=== PATIENT | male | born 1975 ===

== ENCOUNTER 2017-12-27 08:39 | Emergency (ER) | payer OTHER ==
[2017-12-27 08:54] VITALS: BP 158/109
[2017-12-27] MEDS ORDERED: Tetracaine 0.5% OPTH.SOL 4 ML* 1 DROP BTL ONE (09:00)
[2017-12-27] MEDS ORDERED: BSS OPTH.SOL* BTL ONE (09:00)
[2017-12-27] MEDS ORDERED: Fluorescein Sodium TOPICAL* 1 MG TEST ONE (09:01)
[2017-12-27] MEDS ORDERED: Tetracaine 0.5% OPTH.SOL 4 ML* 1 DROP BTL LEFT EYE ONE (09:08)
[2017-12-27] MEDS ORDERED: BSS OPTH.SOL* BTL OPHTHALMIC ONE (09:09)
[2017-12-27] MEDS ORDERED: Fluorescein Sod TOPICAL 0.6* 0.6 MG TEST OPHTHALMIC ONE (09:34)
--- NOTE | 2017-12-27 09:37 | UC ---
Eye Complaint HPI - HPI Summary HPI Summary: POSSIBLE FB IN LEFT EYE SINCE GRINDING METAL AT WORK YESTERDAY AROUND 2:30PM. WAS WEARING SAFETY GOGGLES AND FACE SHIELD AT THE TIME. PT IMMEDIATELY FLUSHED EYE AT [facility]. FELT BETTER BUT THIS MORNING EYE WAS CRUSTED WITH DRAINAGE AND PT HAD SOME MILD BLURRY VISION LOWER VISUAL FIELD. HAS FB SENSATION BUT NO PAIN, NAUSEA OR STARR. - History of Current Complaint Chief Complaint: UCEye Stated Complaint: EYE COMPLAINT Time Seen by Provider: 12/27/17 09:08 Hx Obtained From: Patient Onset/Duration: Sudden Onset, Lasting Hours, Still Present Timing: Constant Severity Initially: Mild Severity Currently: Mild Pain Intensity: 1 Pain Scale Used: 0-10 Numeric Character: Foreign Body Sensation Aggravating Factor(s): Blinking Alleviating Factor(s): Nothing Associated Signs And Symptoms: Positive: Drainage (Clear). Negative: Photophobia - Allergies/Home Medications Allergies/Adverse Reactions: Allergies Allergy/AdvReac Type Severity Reaction Status Date / Time No Known Allergies Allergy Verified 12/27/17 08:47 PMH/Surg Hx/FS Hx/Imm Hx Previously Healthy: Yes - Surgical History Surgical History: Yes Surgery Procedure, Year, and Place: RIGHT KNEE/SHOULDER - Family History Known Family History: Positive: Hypertension - Social History Alcohol Use: Daily Substance Use Type: None Smoking Status (MU): Never Smoked Tobacco Review of Systems Constitutional: Negative Eyes: Blurred Vision, Other - FB SENSATION Respiratory: Negative Cardiovascular: Negative Gastrointestinal: Negative All Other Systems Reviewed And Are Negative: Yes Physical Exam Triage Information Reviewed: Yes Appearance: Well-Appearing, No Pain Distress, Well-Nourished Vital Signs: Initial Vital Signs Temp 97.7 F 12/27/17 08:48 Pulse 83 12/27/17 08:48 Resp 16 12/27/17 08:48 BP 158/109 12/27/17 08:48 Pulse Ox 98 12/27/17 08:48 Vital Signs Reviewed: Yes Eyes: Positive: Conjunctiva Clear, Other: - PERRL, EOMI. FLUORESCEIN UPTAKE LEFT CORNEA AT 7 O'CLOCK AT BORDER OF IRIS AND AT 4 O'CLOCK AT BORDER OF PUPIL. NO FB IDENTIFIED. Negative: Discharge ENT: Positive: Hearing grossly normal Neck: Positive: Supple Respiratory: Positive: No respiratory distress, No accessory muscle use Cardiovascular: Positive: Pulses Normal Abdomen Description: Positive: Soft Musculoskeletal: Positive: No Edema Neurological: Positive: Alert Psychological: Positive: Age Appropriate Behavior Skin: Negative: rashes Eye Complaint Course/Dx - Differential Dx/Diagnosis Provider Diagnoses: LEFT EYE CORNEAL ABRASION Discharge - Discharge Plan Condition: Stable Disposition: HOME Prescriptions: Ciprofloxacin 0.3% OPTH.MALVIN* [Cipro 0.3% Opth*] 1 drop LEFT EYE Q4H #1 btl Patient Education Materials: Corneal Abrasion (ED) Forms: *Work Release Referrals: Non Staff,Doctor [Primary Care Provider] - Additional Instructions: FOLLOW-UP WITH EYE DOCTOR IF YOU DEVELOP PAIN WITH EYE MOVEMENT, PERSISTENT FOREIGN BODY SENSATION, PURULENT DRAINAGE, SENSITIVITY TO LIGHT, FEVER, VISUAL DISTURBANCE OR ANY OTHER CONCERNING SYMPTOMS. YOUR BLOOD PRESSURE WAS ELEVATED TODAY (158/109). THIS MAY BE DUE TO YOUR ACUTE CONDITION. MONITOR AND FOLLOW-UP WITH YOUR PCP EDWIN SINGH WITHIN 4 WEEKS IF IT HAS NOT RETURNED TO NORMAL.
== END 2017-12-27 09:45 | disposition home or self-care (01) ==
LOC: UCCORT 08:39
DX: S05.02XA Injury of conjunctiva and corneal abrasion without foreign body, left eye, initial encounter (principal); X58.XXXA Exposure to other specified factors, initial encounter; Y93.89 Activity, other specified; Y92.9 Unspecified place or not applicable
CPT/HCPCS: 99202; A9270-GY; G0463